=== PATIENT | female | born 1975 | race Caucasian/White ===

== ENCOUNTER 2016-12-22 03:19 | Emergency (ER) | payer OTHER | END 2016-12-22 05:20 | disposition home or self-care (01) | LOC: ER 03:19 | DX: F15.188 Other stimulant abuse with other stimulant-induced disorder (principal); F22 Delusional disorders; N89.8 Other specified noninflammatory disorders of vagina; G40.909 Epilepsy, unspecified, not intractable, without status epilepticus; Z85.41 Personal history of malignant neoplasm of cervix uteri; Z86.14 Personal history of Methicillin resistant Staphylococcus aureus infection; Z79.899 Other long term (current) drug therapy; Z88.1 Allergy status to other antibiotic agents; Z88.5 Allergy status to narcotic agent; Z88.6 Allergy status to analgesic agent | CPT/HCPCS: 36415; 80307 ==